=== PATIENT | male | born 1985 | race African-American/Black ===

== ENCOUNTER 2020-12-25 08:05 | Emergency (ER) | payer OTHER ==
[~2020-12-25] VITALS: Ht 180.3 cm; Wt 102.2 kg
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
[2020-12-25 10:04] VITALS: BP 129/67
== END 2020-12-25 10:04 | disposition home health service (06) ==
LOC: ER 08:05
DX: M54.5 Low back pain (principal); F17.200 Nicotine dependence, unspecified, uncomplicated; G89.11 Acute pain due to trauma; V49.49XA Driver injured in collision with other motor vehicles in traffic accident, initial encounter; Y93.89 Activity, other specified; Y92.488 Other paved roadways as the place of occurrence of the external cause; Y99.8 Other external cause status
CPT/HCPCS: 72131; 99284-25